=== PATIENT | male | born 1980 | race Hispanic/Latino ===

== ENCOUNTER 2018-08-02 02:01 | Emergency (ER) | payer OTHER ==
--- NOTE | 2018-08-02 03:08 | XRay Report ---
PROCEDURE: XR KNEE 1-2V RT TECHNIQUE: 2 views of the right knee obtained. HISTORY: Dislocation COMPARISONS: None FINDINGS: No acute fracture or dislocation. Joint spaces are maintained. IMPRESSION: No acute fracture or dislocation.. This document is electronically signed by Demario Hamlin MD., Aug 02 2018 03:07:03 AM ET
[2018-08-02] MEDS ORDERED: TORADOL IM ONE (03:30)
--- NOTE | 2018-08-02 03:35 | Emergency Department Report ---
ED Extremity Problem HPI - General Chief complaint: Extremity Injury, Lower Stated complaint: DISLOCATED RT KNEE Time Seen by Provider: 08/02/18 02:33 Source: patient, EMS Mode of arrival: Stretcher Limitations: Physical Limitation - History of Present Illness Initial comments: Patient is a 38-year-old male who states he may have dislocated his right knee. Patient states dislocated the knee Several times in his life. Patient states he stood up and the knee gave out and he fell 80s been unable to properly bend the knee since. Patient states pain is 8 ounces. He is aching and throbbing. - Related Data Previous Rx's Medication Instructions Recorded Last Taken Type Ibuprofen [Ibu] 800 mg PO Q8H PRN #20 tablet 08/02/18 Unknown Rx traMADol [Ultram] 50 mg PO Q6HR PRN #12 tablet 08/02/18 Unknown Rx Allergies Allergy/AdvReac Type Severity Reaction Status Date / Time No Known Allergies Allergy Unverified 08/02/18 02:13 ED Review of Systems ROS: Stated complaint: DISLOCATED RT KNEE Other details as noted in HPI Comment: All other systems reviewed and negative ED Past Medical Hx - Past Medical History Additional medical history: Hep C. Multiple right knee dislocations - Surgical History Past Surgical History?: No - Social History Smoking Status: Current Every Day Smoker Substance Use Type: None - Medications Home Medications: Home Medications Medication Instructions Recorded Confirmed Last Taken Type Ibuprofen [Ibu] 800 mg PO Q8H PRN #20 tablet 08/02/18 Unknown Rx traMADol [Ultram] 50 mg PO Q6HR PRN #12 tablet 08/02/18 Unknown Rx ED Physical Exam - General Limitations: Physical Limitation General appearance: alert, in no apparent distress - Head Head exam: Present: atraumatic, normocephalic - Eye Eye exam: Present: normal appearance - ENT ENT exam: Present: mucous membranes moist - Neck Neck exam: Present: normal inspection - Respiratory Respiratory exam: Present: normal lung sounds bilaterally. Absent: respiratory distress - Cardiovascular Cardiovascular Exam: Present: regular rate, normal rhythm. Absent: systolic murmur, diastolic murmur, rubs, gallop - GI/Abdominal GI/Abdominal exam: Present: soft, normal bowel sounds - Rectal Rectal exam: Present: deferred - Extremities Exam Extremities exam: Present: normal inspection - Expanded Lower Extremity Exam Right Knee exam: Present: full ROM (passively. Patient does have pain with range of motion.), tenderness, swelling (clinically the patient has a [id number] effusion), effusion. Absent: deformity (patient's patella is midline), dislocation, erythema - Back Exam Back exam: Present: normal inspection - Neurological Exam Neurological exam: Present: alert, oriented X3 - Psychiatric Psychiatric exam: Present: normal affect, normal mood - Skin Skin exam: Present: warm, dry, intact, normal color. Absent: rash ED Course Vital Signs 08/02/18 08/02/18 02:06 02:10 Temperature 97.7 F Pulse Rate 69 79 Respiratory 16 11 L Rate Blood Pressure 115/58 [Left] O2 Sat by Pulse 98 100 Oximetry ED Medical Decision Making - Radiology Data [facility] [address] [place] [address] XRay Report Signed Patient: VIOLET CESAR MR#: [id number] : 1980 Acct:[id number] Age/Sex: 38 / M ADM Date: 08/02/18 Loc: ED Attending Dr: Ordering Physician: SASCHA ALBERTO MD Date of Service: 08/02/18 Procedure(s): XR knee 1-2V RT Accession Number(s): [id number] cc: SASCHA ALBERTO MD Fluoro Time In Minutes: PROCEDURE: XR KNEE 1-2V RT TECHNIQUE: 2 views of the right knee obtained. HISTORY: Dislocation COMPARISONS: None FINDINGS: No acute fracture or dislocation. Joint spaces are maintained. IMPRESSION: No acute fracture or dislocation.. This document is electronically signed by Sweta Molina MD., Aug 02 2018 03:07:03 AM ET Transcribed By: TUYET Dictated By: SWETA MOLINA Electronically Authenticated By: SWETA MOLINA Signed Date/Time: 08/02/188 DD/ 6 TD/TT: 08/02/18237 - Medical Decision Making Patient may have some ligamentous injury to the right knee secondary to his fall. Patient will be referred to orthopedics and given meds for symptomatic relief. Critical care attestation.: If time is entered above; I have spent that time in minutes in the direct care of this critically ill patient, excluding procedure time. ED Disposition Clinical Impression: Knee effusion, right Disposition: DC-01 TO HOME OR SELFCARE Is pt being admited?: No Does the pt Need Aspirin: No Condition: Stable Instructions: Knee Effusion (ED) Referrals: MAEGAN EL MD [Staff Physician] - 3-5 Days Time of Disposition: 03:35
[2018-08-02 04:47] VITALS: BP 121/81
== END 2018-08-02 04:47 | disposition home or self-care (01) ==
LOC: ED 02:01
DX: M25.461 Effusion, right knee (principal); F17.200 Nicotine dependence, unspecified, uncomplicated
CPT/HCPCS: 29505; 73560; 96372; 99283; J1885